=== PATIENT | female | born 1985 | race Caucasian/White ===

== ENCOUNTER → 2025-03-20 | Outpatient (CLI) | payer OTHER ==
[~2025-03-20] MED LIST: CLARITIN10 MG PO; COMPAZINE10 MG PO; KEFLEX500 MG PO; LOMOTIL 0.025 M1 TA1 PO; PERCOCET 325 MG1 TA2 PO; ZITHROMAX Z PA250 MG PO; ZOFRAN ODT4 MG SL
[2025-03-20 11:01] LABS: BASO # 0.0 10*3/uL (0.0-0.1); BASO % 0.5 % (0.0-1.0); EOS # 0.0 10*3/uL (0.0-0.4); EOS % 1.0 % (1.0-4.0); MEAN CELL VOLUME 92.8 fl (81.0-99.0); MEAN CORPUSCULAR HGB 31.1 pg (27.0-31.0); MEAN PLATELET VOLUME 10.5 fl (9.6-12.3); MONO # 0.3 10*3/uL (0.1-1.0); MONO % 8.5 % (3.0-9.0); NEUT # 2.6 10*3/uL (2.3-7.9); NEUT % 65.8 % (47.0-73.0); NUCLEATED RED BLOOD CELL 0.0 % (0.0-0.0); NUCLEATED RED BLOOD CELL 0.0 10*3/uL (0.0-0.0); PLATELET COUNT AUTOMATED 219 10*3/uL (130-400); RED CELL DISTRI WIDTH 11.8 % (0-14.5)
[2025-03-20 11:29] LABS: FREE T4 1.29 ng/dl (0.89-1.76)
[2025-03-21 08:08] LABS: DHEA SULFATE 156.0 ug/dL (57.3-279.2)
[2025-03-21 14:08] LABS: ANTI-DSDNA ANTIBODIES 4 IU/mL (0-9); ANTI-RNP ANTIBODIES 0.8 AI (0.0-0.9); ANTICHROMATIN ANTIBODIES <0.2 AI (0.0-0.9); ANTISCLERODERMA-70 AB <0.2 AI (0.0-0.9)
[2025-03-22 14:07] LABS: TESTOS, FREE 0.6 pg/mL (0.0-4.2)
== END | disposition home or self-care (01) ==
LOC: LAB 09:59
PROVIDERS: ATTEND Internal Medicine Endocrinology, Diabetes & Metabolism
DX: R40.0 Somnolence (principal); E27.0 Other adrenocortical overactivity; N92.6 Irregular menstruation, unspecified